=== PATIENT | female | born 1995 | race Caucasian/White ===

== ENCOUNTER 2022-06-23 12:38 | Emergency (ER) | payer OTHER ==
[~2022-06-23] VITALS: Ht 177.8 cm; Wt 45.4 kg
--- NOTE | 2022-06-23 13:13 | NUR ---
C/O ABDOMINAL PAIN IN UMBILICUS AREA SINCE LAST NIGHT. 6/10 DULL PAIN WITH NAUSEA. DENIES DIARRHEA AND VOMITING. PT IS LAYING IN BED AND PLACED ON MONITOR. AAOX4. BREATHING EVEN AND UNLABORED.
--- NOTE | 2022-06-23 13:16 | NUR ---
ESTABLISHED IV 20G RAC. BLOOD DRAWN, URINE SAMPLE COLLECTED AND SENT TO LAB.
[2022-06-23] MEDS ORDERED: ONDANSETRON HCL/PF 4 MG/2 ML VIAL ONE (13:34)
[2022-06-23] MEDS ORDERED: KETOROLAC TROMETHAMINE 15 MG/ML VIAL ONE (13:34)
[2022-06-23] MEDS: IV NS 0.9% 1,000 ML BAG IV ONE (13:35)
[2022-06-23] MEDS: ONDANSETRON HCL/PF 4 MG/2 ML VIAL IVP ONE (13:40)
[2022-06-23] MEDS: KETOROLAC TROMETHAMINE INJ 30 MG/ML VIAL IV ONE (13:41)
[2022-06-23 13:43] LABS: BILIRUBIN,URINE NEGATIVE (NEGATIVE); COLOR,URINE YELLOW (YELLOW); LEUKOCYTE ESTERASE ,URINE NEGATIVE (NEGATIVE); NITRITE, URINE NEGATIVE (NEGATIVE); PH,URINE 6.5 (5.0-8.0); PROTEIN,URINE NEGATIVE (NEGATIVE); UGLUCOSE NEGATIVE (NEGATIVE); UROBILINOGEN,URINE 0.2 EU/dL (0.2)
--- NOTE | 2022-06-23 13:46 | NUR ---
ALL ORDERED MEDICATIONS ADMINISTERED ORDERED, PT RESTING IN BED. BREATHING EVEN AND UNLABORED.
[2022-06-23 13:48] LABS: BACTERIA,URINE None seen /HPF (None Seen); RBC,URINE 0-2 /HPF (0-2); WBC,URINE 0-2 /HPF (0-3)
[2022-06-23 13:49] LABS: SQUAMOUS EPITHELIAL CELL,UR Few /HPF (None Seen)
[2022-06-23 13:55] LABS: BASOPHILS % (AUTO) 0.2 % (0.0-2.0); EOSINOPHILS % (AUTO) 0.7 % (0.0-6.0); HEMATOCRIT 41 % (33-45); HEMOGLOBIN 13.4 g/dL (11.5-14.8); LYMPHOCYTES # (AUTO) 1.4 K/uL (0.8-4.8); LYMPHOCYTES % (AUTO) 13.3 % (20.0-44.0); MEAN CORPUSCULAR HGB CONC 32 g/dl (31.0-36.0); MEAN CORPUSCULAR VOLUME 91 fL (82-100); MONOCYTES # (AUTO) 0.8 K/uL (0.1-1.30); MONOCYTES % (AUTO) 7.9 % (2.0-12.0); NEUTROPHILS # (AUTO) 8.3 K/uL (1.8-8.9); NEUTROPHILS % (AUTO) 77.9 % (43.0-81.0); PLATELET COUNT (AUTO) 244 K/uL (150-450); RED BLOOD CELL COUNT(AUTO) 4.56 MIL/uL (4.0-5.2); WHITE BLOOD COUNT (AUTO) 10.7 K/uL (4.3-11.0)
[2022-06-23 14:17] LABS: ALBUMIN 3.9 g/dL (3.4-5.0); BILIRUBIN,DIRECT 0.2 mg/dL (0.0-0.2); BILIRUBIN,TOTAL 0.6 mg/dL (0.2-1.0); CALCIUM, SERUM 9.1 mg/dL (8.5-10.1); CREATININE 0.8 mg/dL (0.6-1.3); TOTAL PROTEIN, SERUM 7.1 g/dL (6.4-8.2)
[2022-06-23] MEDS ORDERED: ONDA4TAB5 PO (15:14)
[2022-06-23] MEDS ORDERED: FAMO20TA80 PO (15:14)
--- NOTE | 2022-06-23 15:27 | NUR ---
Patient discharged to home in stable condition. Written and verbal after care instructions given. Patient verbalizes understanding of instruction.IV removed. Catheter intact and site benign. Pressure and 4x4 applied to site. No bleeding noted.
[2022-06-23 16:08] VITALS: BP 119/62
== END 2022-06-23 16:09 | disposition home or self-care (01) ==
LOC: ER 13:23
DX: R10.31 Right lower quadrant pain (principal); Z60.2 Problems related to living alone
CPT/HCPCS: 99284; 74176; 96374; 96361; 96375; 85025; 80048; 83690; 80076; 84703; 81001; 36415; J2405; J7030; J1885